=== PATIENT | female | born 1965 | race Two or more races ===

== ENCOUNTER 2017-04-15 17:54 | Emergency (ER) | payer OTHER ==
[~2017-04-15] VITALS: Ht 170.2 cm; Wt 141.5 kg
[~2017-04-15 17:54] MED LIST: ACIDOPHILUS1 EAC2 PO; AMITRIPTYLINE100 MG PO; AMOX1TAB12 PO; BACLOFEN20 MG PO; BENADRYL25 MG PO; CARNITINE250 MG PO; CEFADROXIL500 MG PO; CIPRO500 MG PO; CLA 1,000 MG1000 MG PO; CLEOCIN 60600 MG/50 IV; DEPAKOTE ER500 MG PO; DOLOGESIC CAPSU1 CAP PO; DOXEPIN HCL25 MG; DOXEPIN HCL25 MG PO; FIORINAL 50-321 EACH PO; GARCINIA CAMBO1 EACH PO; GEODON20 MG; GEODON60 MG; GEODON80 MG PO; KLONOPIN1 MG/TAB PO; LAMICTAL150 M1 PO; LEXAPRO20 MG PO; LITHIUM CARBON300 M1; MEDROLPACK PO; NEURONTIN600 MG PO; PAXIL20 MG PO; PAXIL40 MG; PROSOM2 MG PO; PROVENTIL HFA6.7 GM IH; RISPERDAL1 MG; SINGULAIR 10MG10 MG PO; SYNTHROID75 MCG PO; TRAMADOL HCL-AP1 TAB PO; TRANXENE T-TA3.75 MG; ZANTAC300 MG PO; ZITHROMAX500 MG PO; ZYNCOF 20-400120 ML PO; ZYRTEC10 M3 PO
[2017-04-16] MEDS ORDERED: DRAMAMINE LESS25 MG PO (01:58)
[2017-04-16] MEDS ORDERED: CEFUROXIME500 MG PO (01:58)
== END 2017-04-16 02:03 ==
LOC: ER 17:54
DX: J02.9 Acute pharyngitis, unspecified (principal)

== ENCOUNTER 2018-02-25 13:12 | Emergency (ER) | payer OTHER ==
[~2018-02-25] VITALS: Ht 170.2 cm; Wt 131.5 kg
[~2018-02-25 13:12] MED LIST changes: +CEFUROXIME500 MG PO; +DRAMAMINE LESS25 MG PO
[2018-02-25] MEDS ORDERED: VENLAFAXINE HC150 MG (13:33)
[2018-02-25] MEDS ORDERED: DOXEPIN HCL25 MG (13:33)
[2018-02-25] MEDS ORDERED: GEODON80 MG (13:33)
[2018-02-25] MEDS ORDERED: MONTELUKAST SOD10 MG (13:34)
[2018-02-25] MEDS ORDERED: LAMICTAL200 M1 (13:34)
[2018-02-25] MEDS ORDERED: AMITRIPTYLINE150 MG (13:34)
[2018-02-25] MEDS ORDERED: FAMOTIDINE40 MG (13:35)
[2018-02-25] MEDS ORDERED: BIOTIN5000 MCG (13:35)
[2018-02-25] MEDS ORDERED: DICLOFENAC SODI50 MG (13:35)
[2018-02-25] MEDS ORDERED: NORFLEX100MG (13:36)
[2018-02-25] MEDS ORDERED: COLLAGEN PLUS1 EACH (13:36)
[2018-02-25] MEDS ORDERED: CENTRUM ADULTS1 EACH (13:36)
[2018-02-25] MEDS ORDERED: VITAMIN C1000 MG (13:37)
== END 2018-02-25 19:50 | disposition home or self-care (01) ==
LOC: ER 13:12
DX: R25.8 Other abnormal involuntary movements (principal); M62.81 Muscle weakness (generalized)

== ENCOUNTER → 2019-03-14 | Outpatient (CLI) | payer OTHER ==
[~2019-03-14] MED LIST changes: +AMITRIPTYLINE150 MG; +BIOTIN5000 MCG; +CENTRUM ADULTS1 EACH; +COLLAGEN PLUS1 EACH; +DICLOFENAC SODI50 MG; +FAMOTIDINE40 MG; +GEODON80 MG; +LAMICTAL200 M1; +MONTELUKAST SOD10 MG; +NORFLEX100MG; +VENLAFAXINE HC150 MG; +VITAMIN C1000 MG
== END | disposition home or self-care (01) ==
LOC: TOM 09:15 → RAD 10:20
DX: N63.11 Unspecified lump in the right breast, upper outer quadrant (principal); J44.9 Chronic obstructive pulmonary disease, unspecified; R07.89 Other chest pain; Z12.31 Encounter for screening mammogram for malignant neoplasm of breast

== ENCOUNTER 2019-08-07 09:30 | Outpatient (CLI) | payer OTHER | END 2019-08-07 16:18 | disposition home or self-care (01) | LOC: MRI 09:30 | DX: M25.571 Pain in right ankle and joints of right foot (principal) | CPT/HCPCS: 73721 ==

== ENCOUNTER → 2024-05-01 09:24 | Outpatient (CLI) | payer OTHER ==
[2024-05-01 09:56] LABS: HEMATOCRIT 42.2 % (36.0-45.00); HEMOGLOBIN 14.2 g/dL (12.0-15.00); MEAN CELL VOLUME 89.7 fL (80.00-100.00); MEAN CORPUSCULAR HEMOGLOBIN 30.2 pg (27.00-32.0); MEAN CORPUSCULAR HGB CONC 33.7 g/dl (32.0-36.0); PLATELET COUNT 248 K/uL (150-450); RED BLOOD COUNT 4.71 M/uL (4.00-6.00); RED CELL DISTRIBUTION WIDTH 14.4 % (11.5-14.5)
[2024-05-01 10:40] LABS: ALBUMIN 3.6 gm/dL (3.4-5.0); BILIRUBIN TOTAL 0.42 mg/dL (0.3-1.2); CALCIUM 9.7 mg/dL (8.5-10.1); CREATININE SERUM 1.2 mg/dL (0.55-1.02); GFR 46.3; GLOBULINA 3.8 G/DL (2.4-3.5); POTASSIUM 3.75 mEq/L (3.5-5.1); TOTAL PROTEIN 7.4 gm/dL (6.4-8.2)
[2024-05-01 10:53] LABS: INR 1.05; PARTIAL THROMBOPLASTIN TIME 27.6 SECONDS (22.0-34.0); PROTHROMBIN TIME 11.4 SECONDS (9.0-11.5)
== END | disposition home or self-care (01) ==
LOC: LAB 09:24
PROVIDERS: ATTEND Ophthalmology
DX: I10 Essential (primary) hypertension (principal); D68.8 Other specified coagulation defects; H25.013 Cortical age-related cataract, bilateral; Z01.811 Encounter for preprocedural respiratory examination

== ENCOUNTER → 2024-05-26 08:30 | Outpatient (CLI) | payer OTHER ==
[2024-05-26 09:33] LABS: HEMATOCRIT 42.5 % (36.0-45.00); HEMOGLOBIN 14.4 g/dL (12.0-15.00); MEAN CELL VOLUME 89.6 fL (80.00-100.00); MEAN CORPUSCULAR HEMOGLOBIN 30.2 pg (27.00-32.0); MEAN CORPUSCULAR HGB CONC 33.7 g/dl (32.0-36.0); PLATELET COUNT 267 K/uL (150-450); RED BLOOD COUNT 4.75 M/uL (4.00-6.00)
[2024-05-26 09:37] LABS: PH,URINE 5.5 (5.0-8.0); URINE APPEARANCE Clear; URINE BILIRRUBIN Negative (NEGATIVE); URINE BLOOD Negative; URINE COLOR Yellow; URINE GLUCOSE Negative (NEGATIVE); URINE KETONE Negative (NEGATIVE); URINE LEUKOCYTE Negative; URINE NITRATE Negative; URINE PROTEIN Negative (NEGATIVE); URINE UROBILINOGEN 0.2 E.U./dl
[2024-05-26 09:38] LABS: URINE BACTERIA 1235.6 uL (0.0-1933); URINE EPITHELIAL CELLS 5.5 uL (0.0-38.8); URINE WBC 5.5 uL (0.0-23.2)
[2024-05-26 10:05] LABS: URINE RBC 1.3 uL (0.0-20.8)
[2024-05-26 10:14] LABS: ALBUMIN 3.7 gm/dL (3.4-5.0); BILIRUBIN TOTAL 0.47 mg/dL (0.3-1.2); CALCIUM 9.5 mg/dL (8.5-10.1); CHOL HDL RATIO 3.5 (0-5.0); CREATININE SERUM 1.25 mg/dL (0.55-1.02); FERRITIN 89.7 NG/ML (8-252); GFR 44.17; GLOBULINA 3.9 G/DL (2.4-3.5); POTASSIUM 4.17 mEq/L (3.5-5.1); T4 TOTAL 11.95 UG/DL (4.8-13.9); TOTAL PROTEIN 7.6 gm/dL (6.4-8.2); TSH 1.06 uIU/mL (0.358-3.74)
[2024-05-26 10:39] LABS: FOLIC ACID 9.53 ng/ml (4.78-20); T3 TOTAL 0.858 ng/ml (0.846-2.02); VITAMIN D3 25 HYDROXY 40.11 ng/ml (30-120)
== END | disposition home or self-care (01) ==
LOC: LAB 08:30
PROVIDERS: ATTEND Surgery
DX: N39.0 Urinary tract infection, site not specified (principal); D46.4 Refractory anemia, unspecified; E11.9 Type 2 diabetes mellitus without complications; E03.9 Hypothyroidism, unspecified; E54 Ascorbic acid deficiency; E55.9 Vitamin D deficiency, unspecified; D51.9 Vitamin B12 deficiency anemia, unspecified; B96.81 Helicobacter pylori [H. pylori] as the cause of diseases classified elsewhere

== ENCOUNTER 2024-06-02 07:51 | Outpatient (CLI) | payer OTHER | END 2024-06-02 08:09 | disposition home or self-care (01) | LOC: SONOGRAMA 07:51 | PROVIDERS: ATTEND Surgery | DX: K76.0 Fatty (change of) liver, not elsewhere classified (principal); M12.9 Arthropathy, unspecified ==

== ENCOUNTER 2024-12-04 09:57 | Outpatient (CLI) | payer OTHER ==
[2024-12-04 10:43] LABS: BASO % 0.8 % (0.1-1.2); EOS # 0.36 (0.04-0.54); EOS % 3.4 % (0.7-7.0); LYMPH # 4.26 (1.18-3.74); LYMPH % 40.3 % (19.3-53.1); MEAN PLATELET VOLUME 11.30 fl (9.4-12.4); MONO # 0.77 (0.24-0.82); MONO % 7.3 % (4.7-12.5); NEUT # 5.05 (1.56-6.13); NEUT % 47.7 % (34.0-71.1); RED CELL DISTRIBUTION WIDTH 14.0 % (11.6-14.4)
[2024-12-04 11:08] LABS: URINE APPEARANCE Clear; URINE BILIRRUBIN Negative (NEGATIVE); URINE BLOOD Negative; URINE COLOR Yellow; URINE GLUCOSE Negative (NEGATIVE); URINE KETONE Negative (NEGATIVE); URINE LEUKOCYTE Small; URINE NITRATE Negative; URINE PROTEIN Negative (NEGATIVE); URINE UROBILINOGEN 0.2 E.U./dl
[2024-12-04 11:11] LABS: URINE BACTERIA 657.4 uL (0.0-1933); URINE EPITHELIAL CELLS 13.2 uL (0.0-38.8); URINE RBC 3.8 uL (0.0-20.8); URINE WBC 77.5 uL (0.0-23.2)
[2024-12-04 11:23] LABS: INR 1.05
[2024-12-04 11:28] LABS: URINE CAST 0.00 uL (0.0-1.40)
[2024-12-04 11:33] LABS: ALT/SGPT 40.0 U/L (12-78); AST/SGOT 28.0 U/L (15-37); BILIRUBIN TOTAL 0.43 mg/dL (0.3-1.2); BUN CREA RATIO 19.0 (7.0-25.0); CHOL HDL RATIO 3.9 (0-5.0); CREATININE SERUM 0.86 mg/dL (0.55-1.02); GFR 67.77; GLOBULINA 3.8 G/DL (2.4-3.5); GLUCOSE FASTING 96.0 mg/dL (65-100); HDL 44.0 mg/dl (40-60); LDL 100.0 mg/dl (0-130); OSMOLALITY SERUM 286.0 MOSM/KG (275-295); T3 UPTAKE 29.0 % (30-39); TSH 0.746 uIU/mL (0.358-3.74); VLDL 28.0 (0-39)
[2024-12-04 12:00] LABS: ABG PH 7.379 (7.35-7.45); ABG PO2 90.4 mmHg (80-100); BICARBONATE 25.7 mmol/l (23-25); o2 21 %
[2024-12-05 09:08] LABS: hav igm Negative (Negative); hep b c Negative (Negative); hep b s ag Negative (Negative)
== END 2024-12-04 10:16 | disposition home or self-care (01) ==
LOC: LAB 09:57
PROVIDERS: ATTEND Surgery
DX: N39.0 Urinary tract infection, site not specified (principal); D46.4 Refractory anemia, unspecified; E11.9 Type 2 diabetes mellitus without complications; E03.9 Hypothyroidism, unspecified; E54 Ascorbic acid deficiency; E55.9 Vitamin D deficiency, unspecified; D51.9 Vitamin B12 deficiency anemia, unspecified; R19.5 Other fecal abnormalities; Z11.59 Encounter for screening for other viral diseases; R10.9 Unspecified abdominal pain; K73.9 Chronic hepatitis, unspecified; I10 Essential (primary) hypertension; E78.2 Mixed hyperlipidemia; J44.9 Chronic obstructive pulmonary disease, unspecified

== ENCOUNTER 2024-12-04 10:40 | Outpatient (CLI) | payer OTHER | END 2024-12-04 10:47 | disposition home or self-care (01) | LOC: RAD 10:40 | PROVIDERS: ATTEND Internal Medicine Cardiovascular Disease | DX: J44.9 Chronic obstructive pulmonary disease, unspecified (principal) ==